=== PATIENT | male | born 1960 | race Caucasian/White ===

== ENCOUNTER → 2017-04-23 | Outpatient (CLI) | payer BC | LOC: COL.RAD 13:34 | DX: M16.11 Unilateral primary osteoarthritis, right hip (principal) | CPT/HCPCS: J3301; Q9967 ==

== ENCOUNTER → 2017-09-11 | Outpatient (CLI) | payer BC | LOC: COL.RAD 08:30 | DX: M16.11 Unilateral primary osteoarthritis, right hip (principal) | CPT/HCPCS: J3301; Q9967 ==

== ENCOUNTER → 2018-01-29 | Outpatient (CLI) | payer BC | LOC: COL.RAD 09:27 | DX: M25.551 Pain in right hip (principal) | CPT/HCPCS: J3301; Q9967 ==